=== PATIENT | male | born 1970 | race Caucasian/White ===

== ENCOUNTER 2025-04-06 21:10 | Emergency (ER) | payer OTHER, SELFPAY ==
[2025-04-06 21:12] VITALS: BP 197/98
[2025-04-06 21:17] VITALS: BMI 28.6
[2025-04-06 21:30] VITALS: BP 179/97
[2025-04-06 22:00] VITALS: BP 179/108
[2025-04-06 22:30] VITALS: BP 186/89
[2025-04-06 23:00] VITALS: BP 195/108
[2025-04-06] MEDS: CATAPRES 0.1 MG PO (23:22)
[2025-04-06] MEDS: SUBUTEX 8 MG SL (23:27)
[2025-04-07] VITALS: BP 199/98
[2025-04-07] MEDS: CATAPRES 0.2 MG PO (00:10)
[2025-04-07 00:30] VITALS: BP 196/97
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
[2025-04-07 01:30] VITALS: BP 180/96
[2025-04-07] MEDS: CATAPRES 0.1 MG PO (02:16)
[2025-04-07 03:00] VITALS: BP 153/100
[2025-04-07 03:30] VITALS: BP 170/90
[2025-04-07 04:00] VITALS: BP 163/97
== END 2025-04-07 04:25 ==
LOC: EMR 21:10
PROVIDERS: EMERGENCY PHYSICIAN Emergency Medicine
DX: F11.23 Opioid dependence with withdrawal (principal); I10 Essential (primary) hypertension; G89.29 Other chronic pain; F17.200 Nicotine dependence, unspecified, uncomplicated
CPT/HCPCS: 99283; 93005